=== PATIENT | female | born 1990 | race Two or more races ===

== ENCOUNTER 2017-11-29 18:16 | Emergency (ER) | payer SELFPAY ==
[~2017-11-29] VITALS: Ht 154.9 cm; Wt 75.0 kg
[2017-11-29 18:58] LABS: BASOPHILS # (AUTO) 0.11 x10^3/uL (0-0.1); BASOPHILS % (AUTO) 2 % (0-1); EOSINOPHILS # (AUTO) 0.03 x10^3/uL (0-0.4); EOSINOPHILS % (AUTO) 1 % (1-7); LYMPHOCYTES # (AUTO) 1.03 x10^3/uL (1-3.4); LYMPHOCYTES % (AUTO) 14 % (22-44); MD NO; MEAN CORPUSCULAR HEMOGLOBIN 29.9 pg (27.0-34.8); MEAN CORPUSCULAR HGB CONC 33.8 g/dL (32.4-35.8); MEAN CORPUSCULAR VOLUME 88.5 fL (80-100); MEAN PLATELET VOLUME 7.3 fL (7.4-10.4); MONOCYTES # (AUTO) 0.79 x10^3/uL (0.2-0.8); MONOCYTES % (AUTO) 11 % (2-9); NEUTROPHILS # (AUTO) 5.52 x10^3/uL (1.8-6.8); NEUTROPHILS % (AUTO) 74 % (42-75); PLATELET COUNT 267 x10^3/uL (130-400); RED CELL DISTRIBUTION WIDTH 15.4 % (9.6-15.2)
[2017-11-29] MEDS ORDERED: SODIUM CHLORIDE 0.9% 1,000ML IVBOLUS ONE (19:00)
[2017-11-29 19:08] LABS: ANION GAP 12 mmol/L (5-15); CALCIUM 8.8 mg/dL (8.5-10.1); CHLORIDE 102 mmol/L (98-107)
[2017-11-29 19:16] LABS: ALANINE AMINOTRANSFERASE 182 U/L (12-78); ALKALINE PHOSPHATASE 86 U/L (45-117); BILIRUBIN,TOTAL 1.4 mg/dL (0.2-1.0); CREATININE 0.91 mg/dL (0.55-1.02); TOTAL PROTEIN 9.9 g/dL (6.4-8.2)
[2017-11-29 19:17] LABS: SALICYLATE LEVEL < 1.7 mg/dL (2.8-20.0)
[2017-11-29 19:19] LABS: ACETAMINOPHEN < 2 mcg/mL (10-30)
[2017-11-29 22:03] LABS: AMPHETAMINE SCREEN, URINE Positive (Negative); BARBITURATE SCREEN, URINE Negative (Negative); BENZODIAZEPINE SCREEN, URINE Negative (Negative); CANNABINOID SCREEN, URINE Positive (Negative); COCAINE SCREEN, URINE Negative (Negative); METHADONE SCREEN, URINE Negative (Negative); OPIATE SCREEN, URINE Positive (Negative)
[2017-11-29] MEDS ORDERED: ZIPRASIDONE 20MG CAPSULE ONE (22:49)
[2017-11-29] MEDS ORDERED: ZIPRASIDONE 20MG CAPSULE PO ONE (23:00)
[2017-11-29 23:55] VITALS: BP 145/83
== END 2017-11-30 00:51 | disposition home or self-care (01) ==
LOC: ED 23:59
DX: G92 Toxic encephalopathy (principal); F15.122 Other stimulant abuse with intoxication with perceptual disturbance; F15.121 Other stimulant abuse with intoxication delirium; F41.9 Anxiety disorder, unspecified
CPT/HCPCS: 36415; 80053; 80307; 80329; 84443; 84703; 85025; 96360; 99284; J7030; G0480